=== PATIENT | male | born 1950 | race Caucasian/White ===

== ENCOUNTER 2017-10-12 19:02 | Inpatient (IN) | payer OTHER ==
[2017-10-12 19:44] LABS: ADD MAN DIFF? NO
[2017-10-12 19:46] LABS: WHITE BLOOD COUNT 16.2 10^3/ul (4.8-10.8)
[2017-10-12 19:46] LABS: BASOPHIL # 0.1 10^3/ul (0.0-0.1); BASOPHILS % 0.4 % (0.0-2.0); HEMATOCRIT 42.8 % (42.0-52.0); HEMOGLOBIN 14.9 g/dl (14.0-18.0); LYMPHOCYTES % 6.4 % (15.0-51.0); MEAN CORPUSCULAR HEMOGLOBIN 29.7 pg (29.0-33.0); MEAN CORPUSCULAR HGB CONC 34.8 g/dl (32.0-37.0); MEAN CORPUSCULAR VOLUME 85.3 fl (82.0-101.0); MEAN PLATELET VOLUME 11.4 fl (7.4-10.4); MONOCYTE # 1.5 10^3/ul (0.3-0.9); MONOCYTES % 9.1 % (0.0-11.0); NEUTROPHIL # 13.5 10^3/ul (1.6-7.5); NEUTROPHILS % 83.6 % (39.0-77.0); PLATELET COUNT 182 10^3/UL (140-415); RED BLOOD COUNT 5.02 10^6/ul (4.70-6.10); RED CELL DISTRIBUTION WIDTH 12.6 % (11.5-14.5)
[2017-10-12] MEDS: ACETAMINOPHEN 325 MG TAB PO ×2 (19:47→23:39)
[2017-10-12] MEDS: SODIUM CHLORIDE 0.9% 1L BAG IV* (19:48)
[2017-10-12] MEDS: CEFEPIME 2GM/50 ML (PMX) 50 ML IVPB (19:56)
[2017-10-12 20:02] LABS: LACTIC ACID 2.1 mmol/L (0.5-2.0)
[2017-10-12 20:07] LABS: ALANINE AMINOTRANSFERASE 68 IU/L (13-69); ALBUMIN 4.1 g/dl (3.3-4.9); ALBUMIN/GLOBULIN RATIO 1.32; ALKALINE PHOSPHATASE 99 IU/L (42-121); ANION GAP 15 (8-16); ASPARTATE AMINO TRANSFERASE 23 IU/L (15-46); BILIRUBIN,INDIRECT 1.3 mg/dl (0-1.1); BILIRUBIN,TOTAL 1.3 mg/dl (0.2-1.3); BLOOD UREA NITROGEN 15 mg/dl (7-20); CALCIUM 9.5 mg/dl (8.4-10.2); CARBON DIOXIDE 25 mmol/L (21-31); CHLORIDE 102 mmol/L (97-110); CREATININE 0.87 mg/dl (0.61-1.24); GLUCOSE 265 mg/dl (70-220); POTASSIUM 3.6 mmol/L (3.5-5.1); SODIUM 138 mmol/L (135-144); TOTAL PROTEIN 7.2 g/dl (6.1-8.1)
[2017-10-12 20:08] LABS: INR 1.12; PROTIME 14.6 Sec (11.9-14.9); PT RATIO 1.1
[2017-10-12 20:09] LABS: PARTIAL THROMBOPLASTIN TIME 32.1 Sec (25.0-35.0)
[2017-10-12 20:20] LABS: TROPONIN-I < 0.012 ng/ml (0.000-0.120)
[2017-10-12] MEDS: DIPHENHYDRAMINE 50 MG INJ IV (20:23)
[2017-10-12] MEDS: VANCOMYCIN 1 GM (PMX) 250 ML IVPB (20:44)
[2017-10-12 21:38] LABS: ADD UMIC YES; UR ASCORBIC ACID NEGATIVE (NEGATIVE); UR BILIRUBIN (Dip) NEGATIVE (NEGATIVE); UR BLOOD (Dip) NEGATIVE (NEGATIVE); UR CLARITY SLIGHTLY CLOUDY (CLEAR); UR COLOR YELLOW (YELLOW); UR GLUCOSE (Dip) 3+ mg/dL (NEGATIVE); UR KETONES (Dip) NEGATIVE (NEGATIVE); UR LEUKOCYTE ESTERASE (Dip) 2+ Leu/ul (NEGATIVE); UR MUCUS FEW /HPF (NONE SEEN); UR NITRITE (Dip) NEGATIVE (NEGATIVE); UR RBC 0 /HPF (0-5); UR SPECIFIC GRAVITY (Dip) 1.014 (1.003-1.030); UR TOTAL PROTEIN (Dip) NEGATIVE (NEGATIVE); UR UROBILINOGEN (Dip) NEGATIVE (NEGATIVE); UR WBC 75 /HPF (0-5)
[2017-10-12] MEDS ORDERED: ONDANSETRON 4 MG INJ IV ×2 (22:00→23:00)
[2017-10-12 22:05] LABS: LACTIC ACID 1.6 mmol/L (0.5-2.0)
[2017-10-12] MEDS ORDERED: NACL 0.9% 3 ML SYG IV (23:00)
[2017-10-12] MEDS ORDERED: GLUCOSE GEL 15 GRAM TUBE PO ×2 (23:30)
[2017-10-12] MEDS ORDERED: GLUCAGON 1 MG INJ IM (23:30)
[2017-10-12] MEDS ORDERED: GLUCOSE GEL 15 GRAM TUBE BUCCAL (23:30)
[2017-10-12] MEDS ORDERED: DEXTROSE 50% 50 ML SYRINGE IV ×2 (23:30)
[2017-10-13] LABS: LACTIC ACID 3.5 mmol/L (0.5-2.0)
[2017-10-13] MEDS ORDERED: VANCOMYCIN IV PER PHARMACY XX (01:00)
[2017-10-13] MEDS: SOD CHLORIDE 0.9% 500 ML IV ×2 (01:33→04:00)
[2017-10-13] MEDS: ACCU-CHEK XX (01:41)
[2017-10-13 04:22] LABS: ADD MAN DIFF? NO
[2017-10-13 04:28] LABS: ABNORMAL IP MESSAGE 1; BASOPHILS % 0.3 % (0.0-2.0); EOSINOPHILS % 0.1 % (0.0-7.0); HEMOGLOBIN 13.4 g/dl (14.0-18.0); LYMPHOCYTES # 0.3 10^3/ul (0.8-2.9); LYMPHOCYTES % 2.4 % (15.0-51.0); MEAN CORPUSCULAR HGB CONC 34.4 g/dl (32.0-37.0); MEAN CORPUSCULAR VOLUME 87.4 fl (82.0-101.0); MEAN PLATELET VOLUME 11.3 fl (7.4-10.4); MONOCYTE # 0.7 10^3/ul (0.3-0.9); MONOCYTES % 5.5 % (0.0-11.0); NEUTROPHIL # 10.9 10^3/ul (1.6-7.5); NEUTROPHILS % 91.4 % (39.0-77.0); PLATELET COUNT 138 10^3/UL (140-415); POSITIVE DIFF @See below; RED BLOOD COUNT 4.46 10^6/ul (4.70-6.10); RED CELL DISTRIBUTION WIDTH 12.6 % (11.5-14.5)
[2017-10-13 04:28] LABS: WHITE BLOOD COUNT 11.9 10^3/ul (4.8-10.8)
[2017-10-13 04:40] LABS: HEMOGLOBIN A1C 8.1 % (0-5.9)
[2017-10-13 04:50] LABS: ALANINE AMINOTRANSFERASE 49 IU/L (13-69); ALBUMIN 3.1 g/dl (3.3-4.9); ALBUMIN/GLOBULIN RATIO 1.14; ALKALINE PHOSPHATASE 71 IU/L (42-121); ANION GAP 14 (8-16); ASPARTATE AMINO TRANSFERASE 17 IU/L (15-46); BILIRUBIN,INDIRECT 1.8 mg/dl (0-1.1); BILIRUBIN,TOTAL 1.8 mg/dl (0.2-1.3); BLOOD UREA NITROGEN 13 mg/dl (7-20); CALCIUM 7.8 mg/dl (8.4-10.2); CARBON DIOXIDE 23 mmol/L (21-31); CHLORIDE 108 mmol/L (97-110); CHOL/HDL RATIO 2.5 RATIO; CHOLESTEROL 90 mg/dl (100-200); CREATININE 0.76 mg/dl (0.61-1.24); GLUCOSE 250 mg/dl (70-220); HDL CHOLESTEROL 36 mg/dl (30-78); LDL CHOLESTEROL,CALCULATED 40 mg/dl; MAGNESIUM 1.4 mg/dl (1.7-2.5); POTASSIUM 3.7 mmol/L (3.5-5.1); SODIUM 141 mmol/L (135-144); TOTAL PROTEIN 5.8 g/dl (6.1-8.1); TRIGLYCERIDES 72 mg/dl (0-149)
[2017-10-13 05:06] LABS: LACTIC ACID 2.2 mmol/L (0.5-2.0)
[2017-10-13] MEDS: VANCOMYCIN 1.25 GM in SOD CHLORIDE 0.9% 250 ML IVPB ×2 (06:34→17:42)
[2017-10-13 07:57] LABS: LACTIC ACID 2.1 mmol/L (0.5-2.0)
[2017-10-13] MEDS: LISINOPRIL 20 MG TAB PO (08:11)
[2017-10-13] MEDS: ASPIRIN 81 MG TAB PO (08:11)
[2017-10-13] MEDS: INSULIN ASPART [NOVOLOG] 3 ML PEN SC ×5 (08:19→21:51)
[2017-10-13] MEDS ORDERED: CEFEPIME 1GM/50 ML (PMX) 50 ML IVPB (09:00)
[2017-10-13] MEDS ORDERED: CEFTRIAXONE 1 GM/50 ML (PMX) 50 ML IVPB (09:00)
[2017-10-13] MEDS: ACETAMINOPHEN 325 MG TAB PO ×2 (11:10→14:11)
[2017-10-13] MEDS ORDERED: IBUPROFEN 400 MG TAB PO (13:00)
[2017-10-13] MEDS: IBUPROFEN 200 MG TAB PO (14:34)
[2017-10-13] MEDS: AZTREONAM 1 GM/NS (PMX) 50 ML IVPB ×2 (14:34→21:21)
[2017-10-13] MEDS: MAGNESIUM SULFATE 2 GM/50 ML 50 ML IVPB (14:34)
[2017-10-13] MEDS: TAMSULOSIN (SR) 0.4 MG CAP PO (21:21)
[2017-10-13] MEDS: ATORVASTATIN 20 MG TAB PO (21:21)
[2017-10-14] MEDS: ACCU-CHEK XX (02:00)
[2017-10-14 05:21] LABS: ADD MAN DIFF? NO
[2017-10-14 05:30] LABS: WHITE BLOOD COUNT 11.2 10^3/ul (4.8-10.8)
[2017-10-14 05:30] LABS: ABNORMAL IP MESSAGE 1; BASOPHILS % 0.2 % (0.0-2.0); EOSINOPHILS # 0.3 10^3/ul (0.0-0.5); HEMATOCRIT 36.7 % (42.0-52.0); HEMOGLOBIN 12.7 g/dl (14.0-18.0); LYMPHOCYTES # 0.5 10^3/ul (0.8-2.9); LYMPHOCYTES % 4.5 % (15.0-51.0); MEAN CORPUSCULAR HEMOGLOBIN 30.2 pg (29.0-33.0); MEAN CORPUSCULAR HGB CONC 34.6 g/dl (32.0-37.0); MEAN CORPUSCULAR VOLUME 87.2 fl (82.0-101.0); MEAN PLATELET VOLUME 11.8 fl (7.4-10.4); MONOCYTE # 0.6 10^3/ul (0.3-0.9); MONOCYTES % 5.6 % (0.0-11.0); NEUTROPHIL # 9.6 10^3/ul (1.6-7.5); NEUTROPHILS % 86.3 % (39.0-77.0); PLATELET COUNT 147 10^3/UL (140-415); POSITIVE DIFF @See below; RED BLOOD COUNT 4.21 10^6/ul (4.70-6.10)
[2017-10-14 05:44] LABS: PARTIAL THROMBOPLASTIN TIME 40.6 Sec (25.0-35.0); PROTIME 16.4 Sec (11.9-14.9); PT RATIO 1.3
[2017-10-14] MEDS: VANCOMYCIN 1.25 GM in SOD CHLORIDE 0.9% 250 ML IVPB ×3 (05:48→21:51)
[2017-10-14 05:50] LABS: MAGNESIUM 2.1 mg/dl (1.7-2.5)
[2017-10-14 05:50] LABS: PHOSPHORUS 2.1 mg/dl (2.5-4.9)
[2017-10-14 05:52] LABS: ALANINE AMINOTRANSFERASE 42 IU/L (13-69); ALBUMIN/GLOBULIN RATIO 1.15; ALKALINE PHOSPHATASE 75 IU/L (42-121); ANION GAP 9 (8-16); ASPARTATE AMINO TRANSFERASE 22 IU/L (15-46); BILIRUBIN,INDIRECT 1.1 mg/dl (0-1.1); BILIRUBIN,TOTAL 1.1 mg/dl (0.2-1.3); BLOOD UREA NITROGEN 16 mg/dl (7-20); CALCIUM 8.4 mg/dl (8.4-10.2); CARBON DIOXIDE 27 mmol/L (21-31); CHLORIDE 108 mmol/L (97-110); GLUCOSE 230 mg/dl (70-220); POTASSIUM 3.9 mmol/L (3.5-5.1); SODIUM 140 mmol/L (135-144); TOTAL PROTEIN 5.6 g/dl (6.1-8.1)
[2017-10-14 05:57] LABS: VANCOMYCIN,TROUGH < 5.0 ug/ml (10.0-20.0)
[2017-10-14] MEDS: INSULIN ASPART [NOVOLOG] 3 ML PEN SC ×4 (08:13→21:45)
[2017-10-14] MEDS: ASPIRIN 81 MG TAB PO (08:17)
[2017-10-14] MEDS: LISINOPRIL 20 MG TAB PO (08:17)
[2017-10-14 08:29] LABS: ANISOCYTOSIS 1+ (0-0); BAND NEUTROPHILS #M 1.1 10^3/ul (0.0-0.6); BAND NEUTROPHILS % (M) 10 % (0-4); BURR CELLS 1+ (0-0); EOSINOPHILS % (M) 4 % (0-7); GIANT THROMBO% (M) 3 % (0-0); LYMPHOCYTES #M 0.4 10^3/ul (0.8-2.9); LYMPHOCYTES % (M) 4 % (15-51); MONOCYTE #M 0.4 10^3/ul (0.3-0.9); MONOCYTES % (M) 4 % (0-11); PLATELET ESTIMATE NORMAL; POIKILOCYTOSIS 1+ (0-0); SEG NEUT #M 8.9 10^3/ul (1.6-7.5); SEGMENTED NEUTROPHILS (M) % 78 % (39-77); SMUDGE%M 5 % (0-0)
[2017-10-14] MEDS: AZTREONAM 1 GM/NS (PMX) 50 ML IVPB ×2 (09:37→21:44)
[2017-10-14] MEDS: INSULIN GLARGINE [LANtus] 3 ML PEN SC (19:44)
[2017-10-14] MEDS: TAMSULOSIN (SR) 0.4 MG CAP PO (21:43)
[2017-10-14] MEDS: ATORVASTATIN 20 MG TAB PO (21:43)
[2017-10-15] MEDS: DIPHENHYDRAMINE 50 MG INJ IV (01:49)
[2017-10-15] MEDS: ACCU-CHEK XX (02:00)
[2017-10-15 05:22] LABS: ADD MAN DIFF? NO
[2017-10-15 05:26] LABS: WHITE BLOOD COUNT 5.7 10^3/ul (4.8-10.8)
[2017-10-15 05:26] LABS: ABNORMAL IP MESSAGE 1; BASOPHILS % 0.2 % (0.0-2.0); EOSINOPHILS # 0.3 10^3/ul (0.0-0.5); EOSINOPHILS % 5.8 % (0.0-7.0); HEMATOCRIT 37.7 % (42.0-52.0); HEMOGLOBIN 12.9 g/dl (14.0-18.0); LYMPHOCYTES # 0.5 10^3/ul (0.8-2.9); LYMPHOCYTES % 8.7 % (15.0-51.0); MEAN CORPUSCULAR HEMOGLOBIN 29.8 pg (29.0-33.0); MEAN CORPUSCULAR HGB CONC 34.2 g/dl (32.0-37.0); MEAN CORPUSCULAR VOLUME 87.1 fl (82.0-101.0); MEAN PLATELET VOLUME 11.4 fl (7.4-10.4); MONOCYTE # 0.4 10^3/ul (0.3-0.9); MONOCYTES % 6.6 % (0.0-11.0); NEUTROPHIL # 4.5 10^3/ul (1.6-7.5); PLATELET COUNT 181 10^3/UL (140-415); POSITIVE DIFF @See below; RED BLOOD COUNT 4.33 10^6/ul (4.70-6.10); RED CELL DISTRIBUTION WIDTH 12.4 % (11.5-14.5)
[2017-10-15 05:45] LABS: INR 1.17; PROTIME 15.1 Sec (11.9-14.9); PT RATIO 1.2
[2017-10-15 05:46] LABS: PARTIAL THROMBOPLASTIN TIME 37.4 Sec (25.0-35.0)
[2017-10-15 05:47] LABS: ALANINE AMINOTRANSFERASE 38 IU/L (13-69); ALBUMIN 3.2 g/dl (3.3-4.9); ALBUMIN/GLOBULIN RATIO 1.03; ALKALINE PHOSPHATASE 79 IU/L (42-121); ANION GAP 14 (8-16); ASPARTATE AMINO TRANSFERASE 22 IU/L (15-46); BILIRUBIN,INDIRECT 0.5 mg/dl (0-1.1); BILIRUBIN,TOTAL 0.5 mg/dl (0.2-1.3); BLOOD UREA NITROGEN 14 mg/dl (7-20); CALCIUM 8.5 mg/dl (8.4-10.2); CARBON DIOXIDE 25 mmol/L (21-31); CHLORIDE 105 mmol/L (97-110); CREATININE 0.73 mg/dl (0.61-1.24); GLUCOSE 233 mg/dl (70-220); POTASSIUM 4.1 mmol/L (3.5-5.1); SODIUM 140 mmol/L (135-144); TOTAL PROTEIN 6.3 g/dl (6.1-8.1)
[2017-10-15 05:51] LABS: MAGNESIUM 1.9 mg/dl (1.7-2.5)
[2017-10-15 05:53] LABS: VANCOMYCIN,TROUGH 8.8 ug/ml (10.0-20.0)
[2017-10-15] MEDS: VANCOMYCIN 1.25 GM in SOD CHLORIDE 0.9% 250 ML IVPB (06:35)
[2017-10-15] MEDS: ASPIRIN 81 MG TAB PO (08:22)
[2017-10-15] MEDS: AZTREONAM 1 GM/NS (PMX) 50 ML IVPB (08:23)
[2017-10-15] MEDS: INSULIN GLARGINE [LANtus] 3 ML PEN SC (08:25)
[2017-10-15] MEDS: INSULIN ASPART [NOVOLOG] 3 ML PEN SC ×2 (08:26→12:24)
[2017-10-15] MEDS: LISINOPRIL 20 MG TAB PO (09:32)
[2017-10-15] MEDS: VANCOMYCIN 1.5 GM in SOD CHLORIDE 0.9% 250 ML IVPB (13:45)
[2017-10-15] MEDS: GUAIFENESIN/DM 5ML CUP PO (15:26)
[2017-10-15] MEDS: SOD CHLORIDE 0.9% 1,000 ML IV (16:00)
== END 2017-10-15 18:25 | disposition home or self-care (01) | DRG 872 ==
LOC: MS3 22:00 → E/R 19:02 → MS3 10-15 18:21
PROVIDERS: Family Medicine
DX: A41.81 Sepsis due to Enterococcus (principal); E87.2 Acidosis; R65.20 Severe sepsis without septic shock; E11.9 Type 2 diabetes mellitus without complications; N40.0 Benign prostatic hyperplasia without lower urinary tract symptoms; I10 Essential (primary) hypertension; N30.90 Cystitis, unspecified without hematuria; E78.5 Hyperlipidemia, unspecified
CPT/HCPCS: 36415; 71045; 80053; 80061; 80202; 81001; 82962; 83036; 83605; 83735; 84100; 84443; 84484; 85025; 85610; 85730; 87040; 87086; 93005; 96374; 96375; 99291-25